=== PATIENT | female | born 1985 | race Caucasian/White ===

== ENCOUNTER 2019-01-21 10:52 | Emergency (ER) | payer OTHER ==
[~2019-01-21] VITALS: Ht 162.6 cm; Wt 99.8 kg
[2019-01-21] MEDS ORDERED: ALBU90OI INH (11:49)
[2019-01-21] MEDS ORDERED: Prednisone20 MG PO (11:49)
== END 2019-01-21 12:06 | disposition home or self-care (01) ==
LOC: ER 10:52
DX: I10 Essential (primary) hypertension (principal)
CPT/HCPCS: 94640; 99283-25; J7512

== ENCOUNTER 2019-03-14 08:20 | Emergency (ER) | payer OTHER ==
[~2019-03-14] VITALS: Ht 162.6 cm; Wt 92.1 kg
[~2019-03-14 08:20] MED LIST: ALBU90OI INH; Prednisone20 MG PO
[2019-03-14] MEDS ORDERED: Ventolin/Prove6.7 GM INH (09:26)
== END 2019-03-14 09:36 | disposition home or self-care (01) ==
LOC: ER 08:20
DX: J45.901 Unspecified asthma with (acute) exacerbation (principal); J06.9 Acute upper respiratory infection, unspecified; F17.200 Nicotine dependence, unspecified, uncomplicated
CPT/HCPCS: 94640; 99283-25

== ENCOUNTER 2019-08-27 09:33 | Emergency (ER) | payer OTHER ==
[~2019-08-27] VITALS: Ht 167.6 cm; Wt 95.2 kg
[~2019-08-27 09:33] MED LIST changes: +Ventolin/Prove6.7 GM INH
[2019-08-27] MEDS ORDERED: ALBU90OI INH (10:16)
[2019-08-27] MEDS ORDERED: Prednisone20 MG PO (10:16)
== END 2019-08-27 10:51 | disposition home or self-care (01) ==
LOC: ER 09:33
DX: J45.901 Unspecified asthma with (acute) exacerbation (principal); F17.210 Nicotine dependence, cigarettes, uncomplicated
CPT/HCPCS: 94640; 94664; 99284; J7512